=== PATIENT | female | born 1975 | race Caucasian/White ===

== ENCOUNTER 2016-12-11 12:18 | Emergency (ER) | payer MEDICARE | END 2016-12-11 12:57 | disposition home or self-care (01) | LOC: ER1 12:18 | DX: J32.9 Chronic sinusitis, unspecified (principal); H92.02 Otalgia, left ear; E03.9 Hypothyroidism, unspecified | CPT/HCPCS: 99282 ==

== ENCOUNTER 2017-01-05 12:22 | Emergency (ER) | payer MEDICARE | END 2017-01-05 13:00 | disposition home or self-care (01) | LOC: ER1 12:22 | DX: M06.9 Rheumatoid arthritis, unspecified (principal); Z79.1 Long term (current) use of non-steroidal anti-inflammatories (NSAID); Z79.899 Other long term (current) drug therapy | CPT/HCPCS: 96372; 99283; J1885; J2930 ==

== ENCOUNTER 2017-01-17 10:03 | Emergency (ER) | payer MEDICARE | END 2017-01-17 11:38 | disposition home or self-care (01) | LOC: ER1 10:03 | DX: M06.9 Rheumatoid arthritis, unspecified (principal); E05.90 Thyrotoxicosis, unspecified without thyrotoxic crisis or storm; Z79.1 Long term (current) use of non-steroidal anti-inflammatories (NSAID) | CPT/HCPCS: 96372; 96374; 99283; J1100; J1885 ==

== ENCOUNTER → 2017-02-27 | Outpatient (CLI) | payer MEDICARE ==
[~2017-02-27] VITALS: Ht 175.3 cm; Wt 97.5 kg
== END ==
LOC: OPSV 13:00
DX: M05.79 Rheumatoid arthritis with rheumatoid factor of multiple sites without organ or systems involvement (principal)
CPT/HCPCS: 96375; 96413; 96415; J1200; J2930; J7050; Q5102

== ENCOUNTER → 2020-09-08 | Outpatient (CLI) | payer MEDICARE | LOC: OPSV 08-25 11:00 | DX: M06.9 Rheumatoid arthritis, unspecified (principal) | CPT/HCPCS: 96365; 96375; J1720 ==

== ENCOUNTER → 2020-10-28 | Outpatient (CLI) | payer MEDICARE ==
[~2020-10-28] VITALS: Ht 175.3 cm; Wt 89.4 kg
== END ==
LOC: OPSV 10-06 12:00
DX: M06.9 Rheumatoid arthritis, unspecified (principal)
CPT/HCPCS: 96365; 96375; J1720

== ENCOUNTER → 2020-11-25 | Outpatient (CLI) | payer MEDICARE ==
[~2020-11-25] VITALS: Ht 175.3 cm; Wt 89.4 kg
[2020-11-25 12:02] LABS: HEMOGLOBIN 12.3 gm/dl (12.3-15.3); RED BLOOD COUNT 4.1 M/UL (4.00-5.10); WHITE BLOOD COUNT 6.2 K/UL (4.5-11.0)
[2020-11-25 12:33] LABS: BUN/CREATININE RATIO 12 (0-10)
== END ==
LOC: OPSV 11:00
PROVIDERS: Internal Medicine
DX: I10 Essential (primary) hypertension (principal); E03.9 Hypothyroidism, unspecified; M06.9 Rheumatoid arthritis, unspecified; Z79.899 Other long term (current) drug therapy
CPT/HCPCS: 80053; 80061; 82607; 84439; 84443; 85025; 96365; 96375; J1720

== ENCOUNTER → 2020-12-27 | Outpatient (CLI) | payer MEDICARE ==
[~2020-12-27] VITALS: Ht 175.3 cm; Wt 89.4 kg
[2020-12-27 12:30] LABS: BUN/CREATININE RATIO 16 (0-10)
== END ==
LOC: OPSV 12-23 11:00
PROVIDERS: Nurse Practitioner Family
DX: E87.6 Hypokalemia (principal); M06.9 Rheumatoid arthritis, unspecified
CPT/HCPCS: 36415; 80048; 96365; 96375; J1720